=== PATIENT | female | born 1950 | race Hispanic/Latino ===

== ENCOUNTER → 2021-01-08 | Outpatient (CLI) | payer MEDICARE | LOC: RAD 12:29 | PROVIDERS: ATTEND Psychiatry & Neurology Clinical Neurophysiology | DX: M51.36 Other intervertebral disc degeneration, lumbar region (principal) | CPT/HCPCS: 72110 ==

== ENCOUNTER → 2021-02-07 | Outpatient (CLI) | payer MEDICARE | LOC: MRI 10:48 | PROVIDERS: ATTEND Psychiatry & Neurology Clinical Neurophysiology | DX: M54.16 Radiculopathy, lumbar region (principal) | CPT/HCPCS: 72148 ==